=== PATIENT | male | born 1955 | race Caucasian/White ===

== ENCOUNTER → 2020-12-11 09:02 | Outpatient (CLI) | payer MEDICARE, OTHER, SELFPAY ==
--- NOTE | ~2020-12-11 | CT_ITS ---
EXAMINATION: CT sinus wo con DATE: 12/11/2020 09:17 INDICATION: Chronic sinusitis TECHNIQUE: Computed tomography (CT) of the paranasal sinuses was performed without contrast. Iterativ e reconstruction technique was employed. Exam dose: 276.47 mGy-cm total exam DLP. COMPARISON: None FINDINGS: Midline nasal septum. The nasal turbinates are moderately prominent. The ostiomeatal units are patent. Small mucous retention cysts or polyps in the posterior lower right maxillary sinus. There is minimal mucoperiosteal thickening of the right sphenoid sinus. The paranasal sinuses otherwise are normally developed and aerated and clear. The mastoid air cells are normally developed and aerated. Middle and inner ear apparatus appear ajith l. IMPRESSION: Probable small mucus retention cyst in the posterior floor of the right maxillary sinus and minimal mucoperiosteal thickening of the right sphenoid sinus Relatively symmetric prominent nasal turbinates Reviewed, dictated and finalized at [facility]. Reviewed, dictated and finalized at [facility]. IMPRESSION: Probable small mucus retention cyst in the posterior floor of the right maxillary sinus and minimal mucoperiosteal thickening of the right spheno id sinus Relatively symmetric prominent nasal turbinates
== END ==
PROVIDERS: Visit Provider Allergy & Immunology
DX: J32.9 Chronic sinusitis, unspecified (principal); R93.0 Abnormal findings on diagnostic imaging of skull and head, not elsewhere classified
CPT/HCPCS: 70486

== ENCOUNTER 2021-12-13 13:43 | Outpatient (CLI) | payer MEDICARE, SELFPAY ==
--- NOTE | 2021-12-13 | ECHO_ITS ---
Patient Info Name: José Hensley Age: 66 years : 1955 Gender: Male Ht: 71 in Wt: 225 lbs BSA: 2.29 m2 HR: 69 bpm BP: 152 / 71 mmHg Heart Rhythm: Sinus Rhythm Technical Quality: Fair Exam Date: 12/13/2021 2:17 PM Exam Location: [facility] Patient Status: Outpatient Admit Date: 12/13/2021 Staff Ordering Physician: Jose L Gibson Adult Parole Officer: Reema Huffman RDCS Attending Provider: Jose L Gibson Referring Physician: Arthur CARREON; Exam Type: CA echo doppler color flow Study Info Indications R93.1 - Abnormal findings on diagnostic imaging of heart and coronary circulation Complete two-dimensional, color flow and Doppler transthoracic echocardiogram is performed. Summary 1. Complete two-dimensional, color flow and Doppler transthoracic echocardiogram is performed. 2. Normal left ventricular size and thickness with good contractility of all segments and no segmental wall motion abnormalities. Ejection fraction is 64%. Normal diastolic function. 3. No significant valve disease. 4. Left atrial chamber dimension is mildly enlarged. 5. Mild pulmonary hypertension, estimated pulmonary arterial systolic pressure is 43 mmHg. 6. Normal sinus rhythm with frequent PVCs in a pattern of trigeminy. Left Ventricle Left ventricular chamber dimension is normal. Left ventricular systolic function is normal, estimated at Empty. There is no increased left ventricular wall thickness. Left ventricular septal wall motion is normal. The left ventricular diastolic function is normal. Right Ventricle Right ventricular chamber dimension is normal. Right ventricular systolic function is normal. Left Atria Left atrial chamber dimension is mildly enlarged. Right Atria Right atrial chamber dimension is normal. Aortic Valve The aortic valve is trileaflet. There is no aortic valve sclerosis. There is no aortic valve stenosis. There is no aortic valve regurgitation. Pulmonic Valve The pulmonic valve is normal. There is no pulmonic valve stenosis. There is no pulmonic regurgitation. Mitral Valve The mitral valve has normal leaflets. There is no mitral valve stenosis. There is no mitral valve regurgitation. Tricuspid Valve The tricuspid valve leaflets are normal. There is no significant tricuspid valve stenosis. There is trace tricuspid valve regurgitation. Mild pulmonary hypertension, estimated pulmonary arterial systolic pressure is 43 mmHg. Pericardium/Pleural The pericardium appears normal. There is no pericardial effusion. Inferior Vena Cava Dilated inferior vena cava with >50% collapse upon inspiration consistent with Empty right atrial pressure, 15 mmHg. Aorta The aortic root size at the sinus of Valsalva is normal. The prox ascending aorta size is normal. Left Ventricular Outflow Tract Name Value Normal LVOT 2D LVOT Diameter 1.9 cm LVOT Doppler LVOT Peak Gradient 5 mmHg LVOT Mean Gradient 2 mmHg LVOT VTI 23 cm LVOT VTI/AV VTI
== END 2021-12-13 13:44 | disposition home or self-care (01) ==
LOC: ANHCARD 13:50
DX: R93.1 Abnormal findings on diagnostic imaging of heart and coronary circulation (principal); I27.20 Pulmonary hypertension, unspecified
CPT/HCPCS: 93306